=== PATIENT | male | born 1980 | race Caucasian/White ===

== ENCOUNTER 2017-08-11 15:04 | Emergency (ER) | payer SELFPAY ==
[~2017-08-11] VITALS: Ht 175.3 cm; Wt 81.6 kg
[2017-08-11 15:10] VITALS: BP 132/83
[2017-08-11] MEDS ORDERED: AMOX1TAB11 PO (15:19)
--- NOTE | 2017-08-11 15:20 | PHYS DOC ---
Past Medical History Past Medical History: No Pertinent History Past Surgical History: No Surgical History Smoking: Greater than 1 pack/day Alcohol Use: None Drug Use: None Adult General Chief Complaint Chief Complaint: FOOT INJURY PAIN HPI HPI Patient is a 36 year old male presents to the emergency department complaints of laceration left foot. Patient states he was using a bladed foot scraper to remove callous from his foot. He states that he "went to deep" the area is reddened. He states initial injury occurred 5 days ago. His sensitization's up- to-date. Review of Systems Review of Systems Constitutional: Denies fever or chills [] Eyes: Denies change in visual acuity, redness, or eye pain [] HENT: Denies nasal congestion or sore throat [] Respiratory: Denies cough or shortness of breath [] Cardiovascular: No additional information not addressed in HPI [] GI: Denies abdominal pain, nausea, vomiting, bloody stools or diarrhea [] : Denies dysuria or hematuria [] Musculoskeletal: Left foot laceration Integument: Denies rash or skin lesions [] Neurologic: Denies headache, focal weakness or sensory changes [] Endocrine: Denies polyuria or polydipsia [] Physical Exam Physical Exam Constitutional: Well developed, well nourished, no acute distress, non-toxic appearance. [] Neck: Normal range of motion, no tenderness, supple, no stridor. [] Cardiovascular:Heart rate regular rhythm, no murmur [] Lungs & Thorax: Bilateral breath sounds clear to auscultation [] Skin: Warm, dry, no erythema, no rash. [] Extremities: Left foot, plantar aspect, midfoot, 2 cm partial thickness laceration with surrounding erythema, no lymphangitis. There is no discharge from the wound. No fluctuance. Is mildly tender to palpate. Neurovascular intact distally. Remainder for exam unremarkable. Neurologic: Alert and oriented X 3, normal motor function, normal sensory function, no focal deficits noted. [] Psychologic: Affect normal, judgement normal, mood normal. [] EKG EKG [] Radiology/Procedures Radiology/Procedures [] Course & Med Decision Making Course & Med Decision Making Pertinent Labs and Imaging studies reviewed. (See chart for details) []Care provided in the emergency Department. Patient tolerated well. Dragon Disclaimer Dragon Disclaimer This electronic medical record was generated, in whole or in part, using a voice recognition dictation system. Departure Departure Impression: Primary Impression: Cellulitis of foot Disposition: HOME, SELF-CARE Condition: STABLE Referrals: NON,STAFF (PCP) [facility] Patient Instructions: Cellulitis, Wound Care, [id number] Additional Instructions: Prophylactic [id number] as labeled and is indicated for symptom management. Return to the emergency department his symptoms or concerns or worsening of current condition. Otherwise follow-up primary care in 5-7 days. Scripts Amoxicillin/Potassium Clav (AMOX TR-K CLV 875-125 MG TAB) 1 Each Tablet 1 TAB PO BID, #20 TAB Prov: LEROY AMBROCIO APRN 08/11/17 LEROY AMBROCIO APRN Aug 11, 2017 15:20
== END 2017-08-11 15:25 | disposition home or self-care (01) ==
LOC: ER 15:04
DX: L03.116 Cellulitis of left lower limb (principal); F17.200 Nicotine dependence, unspecified, uncomplicated
CPT/HCPCS: 99283

== ENCOUNTER 2017-12-01 07:46 | Emergency (ER) | payer SELFPAY | END 2017-12-01 08:14 | disposition home or self-care (01) | LOC: ER 07:46 | DX: L03.114 Cellulitis of left upper limb (principal); L02.414 Cutaneous abscess of left upper limb; F17.200 Nicotine dependence, unspecified, uncomplicated; F12.10 Cannabis abuse, uncomplicated | CPT/HCPCS: 99283 ==

== ENCOUNTER 2021-08-05 23:19 | Emergency (ER) | payer MEDICAID ==
[~2021-08-05] VITALS: Ht 177.8 cm; Wt 79.0 kg
[~2021-08-05 23:19] MED LIST: AMOX1TAB11 PO; SULF1TAB24 PO
[2021-08-06 01:20] VITALS: BP 119/77
[2021-08-06] MEDS ORDERED: CEPH500T PO (01:44)
--- NOTE | 2021-08-06 01:44 | ED.ADGEN ---
Past Medical History Past Medical History: No Pertinent History Past Surgical History: No Surgical History Smoking Status: Current Every Day Smoker Alcohol Use: None Drug Use: Marijuana General Adult EDM: Chief Complaint: WOUND CHECK HPI: HPI: Patient is a 40 year old male coming in for boil on his sacrum. Patient states he has had this for years and occasionally spontaneously drains and oily fluid. Pain to the emergency department tonight because his sister sought and thought she should have him get checked out. She is concerned is little bit of redness near it. No systemic complaints Review of Systems: Review of Systems: All other systems within normal limits except for as noted in the HPI Allergies: Allergies: Allergies Coded Allergies Type Severity Reaction Last Updated Verified No Known Drug Allergies 08/11/17 No Physical Exam: PE: Constitutional: Well developed, well nourished, no acute distress, non-toxic appearance. [] HENT: Normocephalic, atraumatic, bilateral external ears normal, nose normal. [] Eyes: PERRLA, conjunctiva normal, no discharge. [] Neck: No rigidity, supple, no stridor. [] Cardiovascular: Regular rate and rhythm, brisk cap refill [] Lungs & Thorax: Non labored symmetric respirations, no tachypnea or respiratory distress [] Abdomen: Soft, nondistended. Skin: Warm, dry, no erythema, no rash. Cyst on sacrum approximately 4 x 3 mm. Is squishy, not indurated, not warm or erythematous. Near the edge there is a small area of erythema within the dermis. [] Back: Unremarkable Extremities: No deformities, range of motion grossly intact, no lower extremity edema [] Neurologic: Alert and oriented X 3, no focal deficits noted. [] Psychologic: Affect normal, judgement normal, mood normal. [] Current Patient Data: Vital Signs: Vital Signs Date Time Temp Pulse Resp B/P (MAP) Pulse Ox O2 Delivery O2 Flow Rate FiO2 08/06/21 01:20 97.7 79 18 119/77 (91) 99 Room Air 97.7 EKG: EKG: [] Heart Score: C/O Chest Pain: No Risk Factors: Risk Factors: DM, Current or recent (<one month) smoker, HTN, HLP, family history of CAD, obesity. Risk Scores: Score 0 - 3: 2.5% MACE over next 6 weeks - Discharge Home Score 4 - 6: 20.3% MACE over next 6 weeks - Admit for Clinical Observation Score 7 - 10: 72.7% MACE over next 6 weeks - Early Invasive Strategies Radiology/Procedures: Radiology/Procedures: Patient has been recurrent over many years and is not currently an abscess or infected. Patient did not little bit of emesis given the has more the appearance of a comedone. Discussed surgical follow-up for definitive cyst sac removal. There is no indication for an emergent I&D in the ED. We will give prophylactic antibiotics in case of skin infection to prevent abscess formation. Patient given resources to follow-up with surgeon for definitive treatment Course & Med Decision Making: Course & Med Decision Making Pertinent Labs and Imaging studies reviewed. (See chart for details) [] Dragon Disclaimer: Dragon Disclaimer: This electronic medical record was generated, in whole or in part, using a voice recognition dictation system. Departure Departure Impression: Primary Impression: Pilonidal cyst without abscess Disposition: HOME / SELF CARE / HOMELESS Condition: STABLE Referrals: NO PCP (PCP) Patient Instructions: Pilonidal Cyst Scripts Cephalexin (CEPHALEXIN) 500 Mg Tablet 1 TAB PO TID for antibiotic for 5 Days, #15 TAB Prov: JAMESON KNIGHT MD 08/06/21 JAMESON KNIGHT MD Aug 06, 2021 01:44
== END 2021-08-06 02:00 | disposition home or self-care (01) ==
LOC: ER 23:19
DX: L05.91 Pilonidal cyst without abscess (principal); F17.200 Nicotine dependence, unspecified, uncomplicated
CPT/HCPCS: 99283